=== PATIENT | female | born 1985 | race Caucasian/White ===

== ENCOUNTER 2017-02-16 13:41 | Inpatient (IN) | payer OTHER ==
--- NOTE | 2017-02-15 20:32 | HP ---
ASHLEY BRAVO [id number] DATE OF ADMISSION: 02/16/2017 ADMITTING DIAGNOSES: 1. Term . 2. Desires elective induction of labor. HISTORY OF PRESENT ILLNESS: The patient is a 31-year-old G-4, P-3, with an estimated delivery date of 02/23/2017. The patient is to be admitted for elective induction of labor due to the patient living far away from the hospital. The patient is blood type B- and she had RhoGAM at 29 weeks. She desires tubal ligation. The patient had an anatomy ultrasound performed at 20 weeks, which was consistent with dates, and there was the possible velamentous cord insertion, and this was noted at that time. A repeat ultrasound showed no velamentous cord insertion, however, there was a partially marginal insertion of the cord 2.5 cm from the edge of the placenta, and this is of uncertain clinical significance. The patient had otherwise an uncomplicated course. The patient's most recent exam was 1 cm, 60% effaced and -2 station, and she had requested elective induction of labor at 39 weeks, as she lives far away from the hospital with limited access to transportation. PAST OB HISTORY: The patient has had three prior normal vaginal deliveries. The patient had a spontaneous in 2009. Subsequently in 2009 she had an induction of labor at 37 weeks for preeclampsia for a baby male weighing 6 pounds and 6 ounces. In 2010, the patient had a full-term vaginal delivery of a baby female weighing 8 pounds and in 2012 she had a term vaginal delivery of a baby male weighing 8 pounds as well. PAST MEDICAL HISTORY: Negative. MEDICATIONS: She is taking multivitamins. PHYSICAL EXAMINATION: GENERAL: The patient is in no apparent distress. HEART: Regular rate and rhythm. LUNGS: Clear to auscultation bilaterally. ABDOMEN: Abdomen is gravid, with an estimated weight of 3,300 grams. PELVIC: Cervix is 1 cm dilated, 60% effaced, -2 station, in cephalic presentation, with intact membranes. EXTREMITIES: Exam is normal. ASSESSMENT/PLAN: This is a 31-year-old G-4, P-3 at 39 weeks for elective induction of labor. The induction of labor has been reviewed and the risks include hyperstimulation, infection and caesarian section. We will proceed with Pitocin induction. The patient's Group B streptococcus status is negative.
[2017-02-16] MEDS ORDERED: OXYTOCIN IN LR 500 ML IV PRN (14:10)
[2017-02-16] MEDS ORDERED: OXYTOCIN IN LR 500 ML IV ONE ×3 (14:10→21:36)
[2017-02-16 14:36] VITALS: BMI 21.4
[2017-02-16] MEDS: LACTATED RINGERS 1,000 ML IV SCH ×6 (14:50→22:26)
[2017-02-16 15:13] LABS: HEMOGLOBIN 11.2 gm/l (12.0-16.0); MEAN CELL VOLUME 82.9 fl (81.0-99.0); MEAN CORPUSCULAR HEMOGLOBIN 27.3 pg (27.0-31.0); MEAN CORPUSCULAR HGB CONC 32.9 g/dl (33.0-37.0); RED CELL DISTRIBUTION WIDTH 12.8 % (11.5-14.5)
[2017-02-16] MEDS ORDERED: LACTATED RINGERS 1,000 ML ONE (15:14)
[2017-02-16] MEDS ORDERED: IV START KIT ONE (15:14)
[2017-02-16] MEDS ORDERED: OXYTOCIN 10 UNITS/ML VIAL ONE (15:14)
[2017-02-16] MEDS ORDERED: LIDOCAINE Viscous 2% 15 ML UDCUP ONE (15:15)
[2017-02-16] MEDS ORDERED: PUMP TUBING ONE (15:15)
[2017-02-16] MEDS ORDERED: MINERAL OIL 25 ML BOT ONE (15:15)
[2017-02-16] MEDS ORDERED: LIDOCAINE 1% (PRES FREE) 30 ML VIAL ONE (15:15)
[2017-02-16] MEDS ORDERED: EPIDURAL PUMP SET ONE (16:06)
[2017-02-16] MEDS ORDERED: FENTANYL/ROPIVACAINE EPIDURAL 250 ML EP ONE (16:06)
[2017-02-16] MEDS ORDERED: FENTANYL 100 MCG/2 ML VIAL ONE (16:20)
[2017-02-16] MEDS ORDERED: EPIDURAL PROCEDURE TRAY ONE (16:21)
[2017-02-16] MEDS ORDERED: LIDOCAINE 2% (PRES FREE) 5 ML VIAL ONE (16:21)
[2017-02-16] MEDS ORDERED: FENTANYL/ROPIVACAINE EPIDURAL 250 ML EP SCH (16:26)
[2017-02-16] MEDS ORDERED: DIPHENHYDRAMINE HCL 50 MG/1 ML VIAL IV PRN (16:26)
[2017-02-16] MEDS ORDERED: METOCLOPRAMIDE HCL 5 MG/ML 2ML VIAL IV PRN (16:26)
[2017-02-16] MEDS ORDERED: NALOXONE HCL 0.4 MG/ML VIAL IV PRN (16:26)
[2017-02-16] MEDS ORDERED: SODIUM CHLORIDE 0.9% 500 ML IV PRN (16:26)
[2017-02-16] MEDS ORDERED: LACTATED RINGERS 500 ML IV PRN (16:26)
[2017-02-16] MEDS ORDERED: ONDANSETRON 4 MG/2ML 2 ML VIAL IV PRN (16:26)
[2017-02-16] MEDS ORDERED: NALBUPHINE HCL 20 MG/ML AMP IV PRN (16:26)
[2017-02-16] MEDS ORDERED: EPHEDRINE SULFATE 50 MG/ML 1ML VIAL IV PRN (16:26)
[2017-02-16 16:35] LABS: URINE BILIRUBIN NEGATIVE (NEGATIVE); URINE BLOOD 2+ (NEGATIVE); URINE GLUCOSE (UA) NEGATIVE (NEGATIVE); URINE LEUKOCYTE ESTERASE TRACE (NEGATIVE); URINE NITRITE NEGATIVE (NEGATIVE); URINE PROTEIN 1+ (NEGATIVE); URINE UROBILINOGEN NORMAL (0-1 mg/dl)
[2017-02-16 16:37] LABS: URINE APPEARANCE CLOUDY; URINE COLOR LIGHT YELLOW
[2017-02-16 16:51] LABS: URINE BACTERIA 2+; URINE EPITHELIAL CELLS 15-20 /hpf
--- NOTE | 2017-02-16 18:33 | PCMAN ---
OB Admission Note - History : 5 Term: 3 : 0 Abortions (S&E): 1 Livin Gestational Age (weeks): 39 Days (#/7): 0 Admit Cervical Dilation:: 4 Admit Cervical Effacement (%):: 50 Admit Station:: -2 Admit Presentaton:: vtx Membrane Status: Ruptured Rupture (Date): 02/16/17 Rupture (Time): 13:00 Membranes Comment:: clear fluid Labor Onset (Date): 02/16/17 Labor Onset (Time): 13:30 Contractions: Yes Contraction Frequency:: 6 Status:: category 1 tracing EFW:: 7 lbs Summary of Course:: requesting bilateral tubal ligation, gbs negative - Labs Blood Type: B (-) negative GBS Status: Negative
--- NOTE | 2017-02-16 21:25 | HP ---
ASHLEY BRAVO [id number] DATE OF : 1985 HISTORY OF PRESENT ILLNESS: This is a 31-year-old female who was originally scheduled for induction of labor, however, she had spontaneous rupture of membranes at 1300 hours on 02/16/2017 and then contractions starting a half hour after that. The amniotic fluid was clear according to the patient. She has presented to the [facility] in early labor, with contractions every six to nine minutes, and she has been started on Pitocin for augmentation of labor. OB HISTORY: G-5, P-3, 0-1-3. She has had three vaginal deliveries, the largest baby being 8 pounds, and history of preeclampsia with the first , then she had one spontaneous . [employer] HISTORY: Regular menses. PAST MEDICAL HISTORY: Negative. PAST SURGICAL HISTORY: Negative. ALLERGIES: Negative. SOCIAL HISTORY: Nonsmoker and nondrinker. FAMILY HISTORY: Negative. REVIEW OF SYSTEMS: Positive for irregular uterine contractions and history of spontaneous rupture of membranes. PHYSICAL EXAMINATION: GENERAL: This is a healthy female in no acute distress. HEENT: Normal. NECK: Supple. Thyroid not palpable. BREASTS: Normal. This was taken from the OB chart. HEART: Regular sinus rhythm. No murmurs. LUNGS: Clear. ABDOMEN: Gravid. Estimated weight was 7 pounds. heart present. PELVIC: Last pelvic exam showed the cervix to be 4 cm, 50% effaced, vertex and -2 station. Her EDC was 02/23/2017. Her last period was 05/13/2016. Gestational age at 39 weeks. She decided against tubal ligation for multiparity. She is Group B Strep negative. IMPRESSION: 1. A 39 week gestation, with spontaneous rupture of membranes and labor. PLAN: Continue Pitocin augmentation and anticipate vaginal delivery.
[2017-02-16] MEDS ORDERED: MAGNESIUM HYDROXIDE 30 ML UDCUP PO PRN (21:26)
[2017-02-16] MEDS ORDERED: BENZOCAINE/MENTHOL 60 APPLIC/BOT TP PRN (21:26)
[2017-02-16] MEDS ORDERED: LANOLIN 50 APPLIC/7G TUBE TP PRN (21:26)
[2017-02-16] MEDS ORDERED: SENNOSIDES 8.6 MG TABLET PO PRN (21:26)
--- NOTE | 2017-02-16 21:26 | PCMDEL ---
Delivery Note - Labor 1st stage (hr/min):: 4 hrs 7 min 2nd stage (hr/min):: 28 min 3rd stage (hr/min):: 31 minutes, followed by manual removal of placenta, placenta acreta Total (hr/min):: 5hrs 6 min Pushed (hr/min):: 28 min - Delivery Delivery (Date): 02/16/17 Delivery (Time): 20:31 Infant Gender: Female Presentation: Cephalic Position: OA Umbilical Cord: 3 Vessel, Nuchal Cord (loose nuchal cord) Delayed Cord Clamping:: > 3 min 1 Minute Total: 9 5 Minute Total: 10 Placenta:: manual removal of adherent placenta after 31 minutes, appeared intact. EBL:: 400cc Perineum:: intact Suture:: none Anesthesia/Meds:: epidural Length ROM:: 7hr 31 min Comments:: delivery note: patient pushed effectively from fully dilated, +1 station. laure to or position, with easy delivery of baby's head, shoulders and body. loose nuchal cord x 1 reduced after delivery of head. compound head and hand presentation. baby cried spontaneously, then placed skin to skin on mother's abdomen. delayed cord clamping performed, cord cut by father of baby. cord blood obtained. no labial or perineal lacerations noted. placenta did not separate after 31 minutes, it was manually removed after explaining reason to patient and family, placenta removed intact, but felt more adherent than normal , suggestive of a placenta accreta. examining hand swept entire endometrial cavity after removal of placenta, no remaining placental tissue felt. cervix intact. i discussed beginning antibiotics with patient because of manual removal of placenta, and the possibility of bleeding in the post period as a result. should this occur, then a d&c might be needed. estimated blood loss 400cc, with minimal bleeding after removal of placenta, and uterine fundus firm and well below umbilicus. patient tolerated procedure well, instrument and sponge count correct. patient has decided not to have tubal ligation performed. procedure, reasons, complications, antibiotics, placenta accreta reasons and causes and pathology discussed with patient and family.
[2017-02-16] MEDS ORDERED: PENICILLIN G 3 MIL UNIT PREMIX 3 MMU in Premix (D5W) 50 ml 1 EACH IV ONE (21:27)
[2017-02-16] MEDS ORDERED: PENICILLIN G 3 MIL UNIT PREMIX 50 ML IV ONE (21:48)
[2017-02-16] MEDS: OXYCODONE/ACETAMINOPHEN 5/325 MG TABLET PO PRN (21:53)
[2017-02-16] MEDS: IBUPROFEN 800 MG TABLET PO PRN (21:53)
[2017-02-17] MEDS: PENICILLIN V POTASSIUM 500 MG TABLET PO SCH ×5 (03:03→18:30)
[2017-02-17] MEDS ORDERED: PENICILLIN V POTASSIUM 500 MG TABLET PO ONE (03:15)
[2017-02-17] MEDS: IBUPROFEN 800 MG TABLET PO PRN ×3 (04:48→19:54)
[2017-02-17 06:11] LABS: HEMATOCRIT 29.6 % (37.0-47.0); HEMOGLOBIN 9.6 gm/l (12.0-16.0)
[2017-02-17] MEDS: OXYCODONE/ACETAMINOPHEN 5/325 MG TABLET PO PRN ×3 (06:13→19:54)
--- NOTE | 2017-02-17 11:45 | PDOC44 ---
- Subjective Day: 1 (feels well, offers no complaints) Reports Flatus, Reports Pain Tolerable, Reports , Reports Lochia Light, Reports Tolerating Regular Diet, Denies Nausea, Denies Vomiting, Denies Fever - Objective Temp Pulse Resp BP Pulse Ox 97.7 F 45 16 131/77 02/17/17 08:30 02/17/17 08:30 02/17/17 08:30 02/17/17 08:30 Lab Results 02/17/17 02/16/17 05:30 14:50 WBC 11.8 H RBC 4.10 L Hgb 9.6 L 11.2 L Hct 29.6 L 34.0 L Plt Count 188 02/16/17 14:50 MCHC 32.9 L Current Medications Generic Name Dose Route Start Last Admin Trade Name Freq PRN Reason Stop Dose Admin Benzocaine/Menthol 1 applic 02/16/17 21:26 02/16/17 21:53 Dermoplast TP 1 bot PRN PRN Administration Patient Comfort Emollient Ointment 1 applic 02/16/17 21:26 Reb-D-Buaxiu TP PRN PRN sore nipples Ibuprofen 800 mg 02/16/17 21:26 02/17/17 04:48 Motrin PO 800 mg Q6H PRN Administration Pain (Mild) Magnesium Hydroxide 30 ml 02/16/17 21:26 Milk Of Magnesia PO BEDTIME PRN Constipation Oxycodone/Acetaminophen 1 - 2 tab 02/16/17 21:26 02/17/17 06:13 Percocet 5/325 PO 1 tab Q4H PRN Administration Pain (Moderate) Penicillin V Potassium 500 mg 02/17/17 09:00 02/17/17 06:54 Penicillin V Potassium PO 500 mg QID COREY Administration Senna 17.2 mg 02/16/17 21:26 Senokot PO BEDTIME PRN Comfort/CONSTPATION Sodium Chloride 10 ml 02/16/17 21:26 Normal Saline 10ml Flush IV PRN PRN IV Flush Sodium Chloride 10 ml 02/17/17 01:00 02/17/17 06:10 Normal Saline 10ml Flush IV 10 ml Q8HR COREY Administration - Physical Exam General: Afebrile, No Acute Distress Psych/Mental Status: Mood/Affect Appropriate, Judgment/Insight Intact Breast: Soft, Skin intact, Nipples Intact, No Tenderness, No Erythema, No Engorged Fundus: Firm, Midline, Below Umbilicus, Other (nontender) Genitourinary: Other (voiding without difficulty) Lochia: Light Extremities: No Tenderness Other Findings: has anemia, will add iron supplementation - Problems:Assessment/Plan (1) Anemia, Status: Acute (2) 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
[2017-02-17] MEDS: FERROUS SULFATE (65 Fe) 325 MG TABLET PO SCH (12:15)
[2017-02-17] MEDS ORDERED: DOCUSATE SODIUM 100 MG CAPSULE PO PRN (12:37)
[2017-02-17] MEDS ORDERED: LACTATED RINGERS 1,000 ML ONE (18:42)
[2017-02-18] MEDS: PENICILLIN V POTASSIUM 500 MG TABLET PO SCH ×3 (00:06→09:43)
[2017-02-18] MEDS: IBUPROFEN 800 MG TABLET PO PRN ×2 (05:35→11:22)
[2017-02-18] MEDS: OXYCODONE/ACETAMINOPHEN 5/325 MG TABLET PO PRN ×2 (05:35→11:21)
--- NOTE | 2017-02-18 08:10 | PDOC39B ---
Hospital Course: ADMIT DATE: 02/16/17 DISCHARGE DATE: 02/18/17 ADMISSION DIAGNOSES: term , SROM PROCEDURES: labor augmentation, vaginal delivery HISTORY OF PRESENT ILLNESS: 31 year old G5 T3 L3 at 39 weeks 0 days presenting with SROM, labor. Pt was initially scheduled for induction, however was delayed. Pt came in with SROM and labor, and was started on pitocin for labor augmentation. HOSPITAL COURSE: The patient had a vaginal delivery. A baby female, 7lbs 1oz, 9/10 apgars. Patient had uncomplicated course. Baby blood type is O-Negative. Dr. Sherman had to remove placenta manually immediately , no D&C needed.. Pt reports mild lochia on day of discharge. By day of discharge the patient is ambulating, eating, voiding, and passing flatus without difficulty. Pain is controlled and lochia is appropriate. She is []. Pt will f/u in 4weeks. - Physical Exam Vital Signs: Temp Pulse Resp BP Pulse Ox 98.0 F 65 16 112/60 02/18/17 01:57 02/18/17 01:57 02/18/17 01:57 02/18/17 01:57 - Discharge Plan Prescriptions: Ibuprofen [Motrin] 800 mg PO Q6H PRN #30 tablet PRN Reason: Pain
[2017-02-18] MEDS: FERROUS SULFATE (65 Fe) 325 MG TABLET PO SCH (09:19)
[2017-02-18 09:42] VITALS: BP 138/77
--- NOTE | 2017-02-19 13:58 | SURGPATH ---
[facility] [address] [place] [id number] Patient Name: ASHLEY BRAVO MR#: [id number] : 1985 Gender: F Specimen #: [id number] Collected: 02/16/2017 Received: 02/18/2017 Reported: 02/19/2017 Submitting Phys: DUKE MENDOZA I Copy To Phys: [facility] LAURO RODRIGUEZ Clinical History / Pre-Operative Diagnosis: Placenta accreta Specimen Source / Surgical Procedure Performed: Placenta Interpretation: PLACENTA, DELIVERED (377 G): - WELL VASCULARIZED, THIRD TRIMESTER PLACENTA WITH SUBCHORIONIC FIBRIN DEPOSITION. - THREE-VESSEL UMBILICAL CORD. - NO EVIDENCE OF CHORIOAMNIONITIS OR FUNISITIS. Electronically Signed Out Mauricio Pizano M.D., Ph.D. Gross Description: The specimen is received in a formalin filled container labeled with the patient's name and "placenta". A 25 x 1 cm, normally coiled, three vessel umbilical cord is completely evulsed from its insertion site approximately 4 cm from the nearest edge of a 15 x 14 x 3 cm, 377 g tattered placental disc. The surface and membranes are glistening and purple james. The membranes insert normally. There is focal peripheral pale james subchorionic fibrin. The maternal surface is irregular, tattered, red-brown spongy and cannot be assessed at completeness. Sectioning through the disc reveals no nodule or induration. Gross summary: Tattered gaspar placenta with focal subchorionic fibrin and completely evulsed umbilical cord. Summary sections: A-umbilical cord and membranes B-edge section including subchorionic fibrin C-central full thickness section Feliberto Brian Microscopic Description: Multiple sections of the umbilical cord, placental membranes, and placental disc are microscopically examined. The umbilical cord has three vessels on cross-section. There is no evidence of acute inflammation. The placental membranes are histologically unremarkable. There is no evidence of acute inflammation or increased pigmentation. The placental disc is composed of mature, third trimester chorionic villi with subchorionic fibrin deposition and microcalcifications. No infarcts are seen. [id number]: [id number]
== END 2017-02-18 12:35 | disposition home or self-care (01) | DRG 774 ==
LOC: SUATTDRO → FBC 13:41 → EDSTATUS 02-23 17:19
PROVIDERS: ADMIT Obstetrics & Gynecology; ATTEND Obstetrics & Gynecology
PROC: 10E0XZZ Delivery of Products of Conception, External Approach (ICD-10-PCS; principal; 2017-02-16)
PROC: 00HU33Z Insertion of Infusion Device into Spinal Canal, Percutaneous Approach (ICD-10-PCS; 2017-02-16)
DX: O69.81X0 Labor and delivery complicated by cord around neck, without compression, not applicable or unspecified (principal); O43.213 Placenta accreta, third trimester; O36.0930 Maternal care for other rhesus isoimmunization, third trimester, not applicable or unspecified; O90.81 Anemia of the puerperium; Z3A.39 39 weeks gestation of pregnancy; Z37.0 Single live birth